=== PATIENT | male | born 2000 | race African-American/Black ===

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

== ENCOUNTER 2020-10-12 16:11 | Emergency (ER) | payer MEDICAID ==
[~2020-10-12] VITALS: Ht 175.3 cm; Wt 91.0 kg
[2020-10-12 18:08] VITALS: BP 139/90
== END 2020-10-12 18:30 | disposition home or self-care (01) ==
LOC: ED 16:11
DX: U07.1 COVID-19 (principal); R51.9 Headache, unspecified; D57.3 Sickle-cell trait